=== PATIENT | male | born 1945 | race Caucasian/White ===

== ENCOUNTER 2017-06-16 22:58 | Inpatient (IN) | payer BC, OTHER ==
--- NOTE | 2017-06-16 23:12 | PDOC ---
History of Present Illness - General Chief Complaint: Pain, Acute Stated Complaint: BROKEN FEMUR Time Seen by Provider: 06/16/17 23:12 - History of Present Illness Initial Comments: 06/17/17 04:07 Patient is a 72-year-old male with past medical history of hemorrhagic CVA in 2013, severe aphasia, nonambulatory, who presents emergency department today by ambulance from [facility] to rule out a hip fracture. Patient fell from his wheelchair on 06/12/2016. Hip x-rays were performed at the [facility] which showed a possible new hip fracture. He was transferred to our emergency department for CT scan. Patient is a phasic and cannot communicate. The rest of the history of present illness was obtained from his . She states that approximately 1 month ago he had another fall which resulted in a right hip fracture as well. He was evaluated at [facility] to which they decided not to perform surgery as he is nonambulatory. The x-ray results from [facility] point to a new hip fracture. Patient occasionally shouts out in pain. Past History - Travel Traveled outside of the country in the last 30 days: No Close contact w/someone who was outside of country & ill: No - Past Medical History Allergies/Adverse Reactions: Allergies Allergy/AdvReac Type Severity Reaction Status Date / Time No Known Allergies Allergy Verified 06/17/17 00:30 Home Medications: Ambulatory Orders Finasteride [Proscar] 5 mg PO DAILY 05/03/15 Fluoxetine HCl [Prozac -] 20 mg PO DAILY 05/03/15 Metoprolol Tartrate [Lopressor] 50 mg PO DAILY 05/03/15 Ranitidine [Zantac -] 150 mg PO DAILY 05/03/15 Trazodone HCl [Desyrel -] 150 mg PO HS 05/03/15 Acetaminophen [Tylenol .Regular Strength -] 650 mg PO Q6H PRN #0 tablet Clindamycin [Cleocin -] 300 mg PO Q6HPO #28 capsule 05/06/15 Naproxen 250 mg PO BID PRN #20 tablet 05/06/15 CVA: Yes (2013) - Suicide/Smoking/Psychosocial Hx Smoking History: Never smoked Have you smoked in the past 12 months: No Information on smoking cessation initiated: No Hx Alcohol Use: No Drug/Substance Use Hx: No Substance Use Type: None Review of Systems - Review of Systems Able to Perform ROS?: No (Aphasia) Comments:: 06/17/17 04:15 Unable to obtain a review of systems due to patient's aphasia. Patient does have right hip tenderness. Is the patient limited Wallisian proficient: No *Physical Exam - Vital Signs Last Vital Signs Temp Pulse Resp BP Pulse Ox 98.2 F 76 14 104/57 95 06/16/17 23:05 06/16/17 23:05 06/16/17 23:05 06/16/17 23:05 06/16/17 23:05 - Physical Exam Comments: 06/17/17 04:15 GENERAL: Well developed, well nourished. Awake and alert. No acute distress. HEENT: Normocephalic, atraumatic. PERRLA, EOMI. No conjunctival pallor. Sclera are non- icteric. Moist mucous membranes. Oropharynx is clear. NECK: Supple. Full ROM. No JVD. Carotid pulses 2+ and symmetric, without bruits. No thyromegaly. No lymphadenopathy. CARDIOVASCULAR: Regular rate and rhythm. No murmurs, rubs, or gallops. Distal pulses are 2+ and symmetric. PULMONARY: No evidence of respiratory distress. Lungs clear to auscultation bilaterally. No wheezing, rales or rhonchi. ABDOMINAL: Soft. Non-tender. Non-distended. No rebound or guarding. No organomegaly. Normoactive bowel sounds. MUSCULOSKELETAL TTP of R pelvis/femur. Normal range of motion at all other joints. No CVA tenderness. EXTREMITIES: No cyanosis. No clubbing. No edema. No calf tenderness. SKIN: Warm and dry. Normal capillary refill. No rashes. No jaundice. NEUROLOGICAL: Alert, awake, aphasic. Able to move all extremities. PSYCHIATRIC: Cooperative. Good eye contact. Appropriate mood and affect. ED Treatment Course - LABORATORY CBC & Chemistry Diagram: 06/17/17 01:53 06/17/17 01:53 Medical Decision Making - Medical Decision Making 06/17/17 04:21 Patient is a 72-year-old male with past medical history of hemorrhagic CVA in 2013, severe aphasia, nonambulatory, presenting to the emergency department today with a right acute hip fracture. Based on x-rays from the [facility] , a right pelvis lower extremity CT was obtained to determine the extent of the hip fracture. There appears to be a new acute subcapital hip fracture. Patient and patient's family were requesting transfer to [facility] for further treatment however transfer was denied due to the fact services could be provided here. Patient and family understood and will accept admission to our facility at this time. Basic labs were drawn with no obvious abnormalities. Patient was medicated for pain. We will contact franco at this time for admission to the hospital. We'll consult with Dr. David or Davion. 06/17/17 05:17 Spoke with Franco. They are asking that ortho look at the case prior to admission given that the last hip fx was not operated on. Paging Dr. David at this time. 06/17/17 05:[address] David; surgery is not emergent at this time. Given his first fracture was not operated on, would most likely continue same course of care. However if the family requests surgery, would operate. Spoke with pt. who would like time to evaluate the situation and risks and benefits. Will place the patient in observation for pain management at this time. Case discussed with Dr. Galvan. *DC/Admit/Observation/Transfer Diagnosis at time of Disposition: Closed right hip fracture Qualifiers: Encounter type: initial encounter Qualified Code(s): S72.001A - Fracture of unspecified part of neck of right femur, initial encounter for closed fracture - Discharge Dispostion Condition at time of disposition: Stable Admit: Yes - Referrals Referrals: Lamberto Dobson MD [Primary Care Provider] - - Patient Instructions - Post Discharge Activity
[2017-06-16 23:13] VITALS: BMI 20.2
[2017-06-16] MEDS ORDERED: ACETAMINOPHEN 1000 MG/100 ML VIAL (NON FORMULARY) IVPB ONE (23:21)
[2017-06-17] MEDS ORDERED: HYDROmorphone HCL CARPU-JECT 1 MG/1 ML DISP.SYRIN IVPUSH ONE ×2 (00:37→04:01)
[2017-06-17] MEDS ORDERED: HYDROmorphone HCL CARPU-JECT 2 MG/1 ML DISP.SYRIN ONE ×2 (00:40→10:49)
[2017-06-17] MEDS ORDERED: ACETAMINOPHEN INJECTION 100 ML IVPB ONE (00:43)
--- NOTE | 2017-06-17 01:36 | PDOC ---
*Physical Exam - Vital Signs Last Vital Signs Temp Pulse Resp BP Pulse Ox 98.2 F 76 14 104/57 95 06/16/17 23:05 06/16/17 23:05 06/16/17 23:05 06/16/17 23:05 06/16/17 23:05 ED Treatment Course - Medications Given in the ED: ED Medications Discontinued Medications Generic Name Dose Route Start Last Admin Trade Name Fina PRN Reason Stop Dose Admin Acetaminophen 1,000 mg 06/16/17 23:21 06/17/17 01:05 Ofirmev Injection - IVPB 06/16/17 23:22 1,000 mg ONCE ONE Administration Hydromorphone HCl 0.5 mg 06/17/17 00:37 06/17/17 01:05 Dilaudid Injection - IVPUSH 06/17/17 00:38 0.5 mg ONCE ONE Administration Medical Decision Making - Medical Decision Making 06/17/17 01:32 Patient seen and evaluated with the nurse practitioner. I agree with the overall evaluation, assessment, and management with the following summary of visit: 72-year-old male from [facility], history of stroke with right-sided hemiplegia and nonambulatory at baseline, recent right hairline fracture treated nonoperatively now status post fall earlier this week sent to ED with right hip fracture seen on x-ray. Positive pain, baseline immobility of right leg. Vitals as noted. Exam as noted with right lower extremity shortened and externally rotated 72-year-old male with right hip fracture, sent for further imaging. Labs, pain control CT of the hip at bedside requesting transfer to [place], where pt's primary physician and previous ortho team are located. Will proceed with workup then attempt to contact PCP to accept for transfer for continuity of care. *DC/Admit/Observation/Transfer Diagnosis at time of Disposition: Closed right hip fracture Qualifiers: Encounter type: initial encounter Qualified Code(s): S72.001A - Fracture of unspecified part of neck of right femur, initial encounter for closed fracture - Referrals Referrals: Lamberto Dobson MD [Primary Care Provider] - - Patient Instructions - Post Discharge Activity
[2017-06-17 02:11] LABS: BASO % 0.5 % (0-2.0); EOS % 0.9 % (0-4.5); HEMATOCRIT 33.5 % (35.4-49); HEMOGLOBIN 11.1 GM/dL (11.7-16.9); LYMPH % 32.7 % (8-40); MCHC 33.1 g/dl (32.0-35.9); MEAN CELL VOLUME 87.8 fl (80-96); MEAN PLT VOLUME 9.9 fl (7.5-11.1); MONO % 9.4 % (3.8-10.2); NEUT % 56.5 % (42.8-82.8); PLATELET COUNT 203 K/MM3 (134-434); RBC 3.81 M/mm3 (4.00-5.60); RDW 15.5 % (11.9-15.9); WHITE BLOOD COUNT 4.2 K/mm3 (4.0-10.0)
[2017-06-17 02:31] LABS: ALBUMIN 2.9 g/dl (3.4-5.0); ALK PHOS 125 U/L (45-117); ANION GAP 10 (8-16); BILIRUBIN,TOTAL 0.6 mg/dL (0.2-1.0); BLOOD UREA NITROGEN 15 mg/dL (7-18); CALCIUM 8.6 mg/dL (8.5-10.1); CHLORIDE 107 mmol/L (98-107); CO2 26 mmol/L (21-32); CREATININE 0.8 mg/dL (0.7-1.3); GLUCOSE,RANDOM 90 mg/dL (74-106); POTASSIUM 4.1 mmol/L (3.5-5.1); SGOT/AST 26 U/L (15-37); SGPT/ALT 18 U/L (12-78); SODIUM 143 mmol/L (136-145); TOT PROT 6.7 g/dl (6.4-8.2)
[2017-06-17 04:34] LABS: INR 1.31 (0.82-1.09); PROTHROMBIN TIME (PATIENT) 14.8 SEC (9.98-11.88)
[2017-06-17] MEDS ORDERED: SODIUM CHLORIDE 1,000 ML IV SCH (06:00)
--- NOTE | 2017-06-17 06:05 | HP ---
CC: s/p fall PCP: Dr. Dobson HPI: Briefly, 72 yo detention resident h/o aphasia s/p hemorrhagic CVA and wheelchair bound BIBEMS from [facility] after a mechanical fall on 06/12/2017. X-ray performed at that time showed possible new R hip fracture. He's therefore transferred to the ED for CT scan for confirmation 5 days later. Patient is minimally verbal at baseline, limited information was obtained from chart and ED staff. Patient's would like the patient be transferred to [facility] for further care but her request was denied by [facility]. She's uncertain whether she wants the patient to proceed with hip surgery and would like him be admitted to [facility] pending final decision. Orthopedic surgery was made aware and is now waiting on 's decision on surgery. PMH: Gout, R hip fracture, cellulitis of L foot PSH: None Social History: No tobacco, alcohol or drug use Allergy: NKDA Home Meds: Finasteride [Proscar] 5 mg PO DAILY 05/03/15 Fluoxetine HCl [Prozac -] 20 mg PO DAILY 05/03/15 Metoprolol Tartrate [Lopressor] 50 mg PO DAILY 05/03/15 Ranitidine [Zantac -] 150 mg PO DAILY 05/03/15 Trazodone HCl [Desyrel -] 150 mg PO HS 05/03/15 Acetaminophen [Tylenol .Regular Strength -] 650 mg PO Q6H PRN #0 tablet Clindamycin [Cleocin -] 300 mg PO Q6HPO #28 capsule 05/06/15 Naproxen 250 mg PO BID PRN #20 tablet 05/06/15 ROS: Unable to obtain due to mental status Physical Examination Last Vital Signs Temp Pulse Resp BP Pulse Ox 98.2 F 72 18 143/74 100 06/16/17 12:12 06/16/17 15:48 06/16/17 15:48 06/16/17 15:48 06/16/17 15:48 General: lying in bed contracted in no obvious discomfort or distress, awake, alert, but not aware, minimally verbal but does not follow command or answer question. HEENT: R facial droop Cardiovascular: RRR, S1 and S2 normal, 2/5 systolic murmur, no m/g/r. Lungs: CTAB Abdomen: refused exam Extremeties: became agitated during exam, unable to perform CBCD WBC 4.2 K/mm3 (4.0-10.0) 06/17/17 01:53 RBC 3.81 M/mm3 (4.00-5.60) L 06/17/17 01:53 Hgb 11.1 GM/dL (11.7-16.9) L 06/17/17 01:53 Hct 33.5 % (35.4-49) L 06/17/17 01:53 MCV 87.8 fl (80-96) 06/17/17 01:53 MCHC 33.1 g/dl (32.0-35.9) 06/17/17 01:53 RDW 15.5 % (11.9-15.9) 06/17/17 01:53 Plt Count 203 K/MM3 (134-434) 06/17/17 01:53 MPV 9.9 fl (7.5-11.1) 06/17/17 01:53 CMP Sodium 143 mmol/L (136-145) 06/17/17 01:53 Potassium 4.1 mmol/L (3.5-5.1) 06/17/17 01:53 Chloride 107 mmol/L (98-107) 06/17/17 01:53 Carbon Dioxide 26 mmol/L (21-32) 06/17/17 01:53 Anion Gap 10 (8-16) 06/17/17 01:53 BUN 15 mg/dL (7-18) 06/17/17 01:53 Creatinine 0.8 mg/dL (0.7-1.3) 06/17/17 01:53 Creat Clearance w eGFR > 60 (>60) 06/17/17 01:53 Calcium 8.6 mg/dL (8.5-10.1) 06/17/17 01:53 Total Bilirubin 0.6 mg/dL (0.2-1.0) 06/17/17 01:53 AST 26 U/L (15-37) 06/17/17 01:53 ALT 18 U/L (12-78) 06/17/17 01:53 Alkaline Phosphatase 125 U/L (45-117) H 06/17/17 01:53 Total Protein 6.7 g/dl (6.4-8.2) 06/17/17 01:53 Albumin 2.9 g/dl (3.4-5.0) L 06/17/17 01:[address] lower extremity: pending official report, R subcapital fracture per imaging relocation services specialist. A/P: 72 yo detention resident h/o aphasia s/p hemorrhagic CVA and wheelchair bound admitted to obs for pain control for R hip fracture. R subcapital hip fracture, new - Tylenol 300mg standing Q6H - Dilaudid 0.5mg Q4H PRN - Pending 's decision on medical vs. surgical management - Dr. David on the case HTN - Cont. metoprolol FEN - IVF 42cc/hr - Normal lytes - Regular diet Prophylaxis - DVT: SCDs Dispo - Admit for IV pain control, pending 's decision on surgery Bipin Fairchild Medicine PGY2 Pager: [phone] Visit type - Emergency Visit Emergency Visit: Yes Care time: The patient presented to the Emergency Department on the above date and was hospitalized for further evaluation of their emergent condition. - New Patient This patient is new to me today: Yes Date on this admission: 06/17/17 - Critical Care Critical Care patient: No
[2017-06-17] MEDS ORDERED: NAPROXEN 250 MG TABLET (FP) PO PRN (06:20)
[2017-06-17] MEDS: ACETAMINOPHEN 325 MG TABLET (FP) PO SCH ×3 (06:31→20:18)
--- NOTE | 2017-06-17 06:51 | PN ---
Teaching Attending Note Name of Resident: Bipin Fairchild ATTENDING PHYSICIAN STATEMENT I saw and evaluated the patient. Chart, data, imaging reviewed. I reviewed the resident's note and discussed the case with the resident. I agree with the resident's findings and plan as documented. SUBJECTIVE: 72-year-old male from long term, with history of stroke with right-sided hemiplegia and nonambulatory at baseline, recent right hairline fracture treated nonoperatively. Now status post fall about 5 days ago. Sent to hospital because of new/worsening fracture of right hip seen on xray at long term. Evidence of ongoing pain. OBJECTIVE: Last Vital Signs Temp Pulse Resp BP Pulse Ox 98.6 F 70 18 102/76 100 06/17/17 02:35 06/17/17 02:35 06/17/17 02:35 06/17/17 02:35 06/17/17 02:35 General- nonverbal, nontoxic appearing heent -at, nc, no sinus tenderness neck -supple cv-s1+s2+ rrr chest - cta b/l abdomen - patient refused exam ext- unable to examine properly due to lack of cooperation CT of right lower extremity : pending official report, R subcapital fracture per imaging rn liaison. Abnormal Lab Results 06/17/17 06/17/17 06/17/17 01:53 01:53 04:09 RBC 3.81 L Hgb 11.1 L Hct 33.5 L PT with INR 14.80 H INR 1.31 H Alkaline Phosphatase 125 H Albumin 2.9 L ASSESSMENT AND PLAN: #72yo male s/p fall with right hip fracture. Patient may be candidate for surgical intervention if family decides upon it. -observation med/surg -pain control with PO tylenol -orthopedics evaluation -f/u final CT of lower extremity report -continue home meds for chronic medical problems #DVT ppx -heparin sc
[2017-06-17] MEDS: FLUoxetine HCL 20 MG CAPSULE (FP) PO SCH (09:52)
[2017-06-17] MEDS: RANITIDINE HCL 150 MG TABLET (FP) PO SCH (09:52)
[2017-06-17] MEDS ORDERED: METOPROLOL TARTRATE 50 MG TABLET (FP) PO SCH (10:00)
[2017-06-17] MEDS ORDERED: FINASTERIDE 5 MG TABLET (FP) PO SCH (10:00)
[2017-06-17] MEDS: HYDROmorphone HCL CARPU-JECT 1 MG/1 ML DISP.SYRIN IVPUSH PRN (10:55)
[2017-06-17] MEDS ORDERED: MAGNESIUM HYDROX 2400MG/30ML ORAL SUSPENSION 30 ML CUP PO PRN (14:49)
--- NOTE | 2017-06-17 15:02 | PN ---
Progress Note (short form) - Note Progress Note: Subjective: no fever or hcills , has pain in R hip even with minimal movement and touch Objective: Vital Signs: Last Vital Signs Temp Pulse Resp BP Pulse Ox 98.8 F 79 17 140/81 98 06/17/17 06:52 06/17/17 11:10 06/17/17 11:10 06/17/17 11:10 06/17/17 11:10 Laboratory Results - last 24 hr 06/17/17 06/17/17 06/17/17 01:53 01:53 01:53 WBC 4.2 RBC 3.81 L Hgb 11.1 L Hct 33.5 L MCV 87.8 MCH 29.0 MCHC 33.1 RDW 15.5 Plt Count 203 MPV 9.9 Neutrophils % 56.5 Lymphocytes % 32.7 Monocytes % 9.4 Eosinophils % 0.9 Basophils % 0.5 PT with INR INR PTT (Actin FS) Sodium 143 Potassium 4.1 Chloride 107 Carbon Dioxide 26 Anion Gap 10 BUN 15 Creatinine 0.8 Creat Clearance w eGFR > 60 Random Glucose 90 Calcium 8.6 Total Bilirubin 0.6 AST 26 ALT 18 Alkaline Phosphatase 125 H Total Protein 6.7 Albumin 2.9 L Blood Type A POSITIVE Antibody Screen Negative 06/17/17 06/17/17 03:25 04:09 WBC RBC Hgb Hct MCV MCH MCHC RDW Plt Count MPV Neutrophils % Lymphocytes % Monocytes % Eosinophils % Basophils % PT with INR Cancelled 14.80 H INR Cancelled 1.31 H PTT (Actin FS) Cancelled Sodium Potassium Chloride Carbon Dioxide Anion Gap BUN Creatinine Creat Clearance w eGFR Random Glucose Calcium Total Bilirubin AST ALT Alkaline Phosphatase Total Protein Albumin Blood Type Antibody Screen Physical Exam: NAD, in position on hi s left side, screams with even moving the sheets over his hip limited exam due to his position CV: RRR, Lungs: CTAB Abd: not able to examine R lateral hip with no erythema , unable to evaluate movement , or warmth. did not allow foot exam, L DP 2+ . no edema on legs. unable to perform neuro exam. Assessment/Plan: 72 y/o unfortunate man with h/o hemorrhagic stroke, R sided weakness, HLP, GERD , aphasia, and recent R hip hair line Fx , managed conservatively who presented after a fall form a wheel chair in [place] . 1- Displaced R hip Fx: with significant pain - pain meds ( cont dilaudid and add percocet) . dc naproxen due to possible bleed on CT scan - ortho eval. - rayna-op risk stratification: this is a non emergent intermediate risk procedure. this patient has no current sx or signs of ACS, heart failure or arrhythmias. will review his EKG. No murmurs are heard on heart exam. he has a h /o stroke and HTN. His functional status is poor and an equivalent of < 1 METs. given all these factors, this patient is considered at intermediate-high risk of rayna-op cardiac complications for this intermediate risk surgery. - will optimize his medical regimen 2- HTN: increase lopressor to his home dose. 50 BID 3- Depression : cont prozac and decrease trazodone to his home dose 50 4- poor po intake , gentle hydration speech eval. usually takes chopped diet 6- DVT PX , SCDs. hold heparin due the possible bleeding around the Fx on CT. after sx will appreciate ortho advise Visit type - Emergency Visit Emergency Visit: Yes ED Registration Date: 06/17/17 Care time: The patient presented to the Emergency Department on the above date and was hospitalized for further evaluation of their emergent condition. - New Patient This patient is new to me today: No - Critical Care Critical Care patient: No
[2017-06-17] MEDS ORDERED: ACETAMINOPHEN 325 MG TABLET (FP) PO PRN (15:07)
[2017-06-17] MEDS: SODIUM CHLORIDE 1,000 ML IV SCH (15:30)
[2017-06-17] MEDS ORDERED: ACETAMINOPHEN 325 MG TABLET (FP) ONE (20:10)
[2017-06-17] MEDS ORDERED: traZODone HCL 50 MG TABLET (FP) PO SCH (22:00)
[2017-06-17] MEDS: traZODone HCL 50 MG TABLET (FP) PO SCH (22:20)
[2017-06-17] MEDS: METOPROLOL TARTRATE 50 MG TABLET (FP) PO SCH (22:20)
[2017-06-17] MEDS ORDERED: METOPROLOL TARTRATE 50 MG TABLET (FP) ONE (22:21)
[2017-06-18] MEDS: oxyCODONE HCL 5 MG TABLET PO PRN ×3 (01:38→16:57)
[2017-06-18] MEDS: ACETAMINOPHEN 325 MG TABLET (FP) PO SCH ×2 (01:38→12:39)
--- NOTE | 2017-06-18 06:10 | PN ---
Physical Exam: SUBJECTIVE: Patient seen and examined at bedside. AAOx0 , refused to be examined (needed to be hold by nurses), demented. No acute events over night. OBJECTIVE: Vital Signs Period Temp Pulse Resp BP Sys/Fu Pulse Ox Last 24 Hr 97.8 F-98.9 F 66-79 15-20 110-149/55-88 92-98 GENERAL: awake , aphasic ,in mild distress. screams with minimal interval HEAD: Normal with no signs of trauma. EYES: sclera anicteric, conjunctiva clear. ENT: dry mucous membranes. NECK: supple. LUNGS: Breath sounds equal, clear to auscultation bilaterally, no wheezes, no crackles, no accessory muscle use. HEART: Regular rate and rhythm, S1, S2 without murmur, rub or gallop. ABDOMEN: Soft, nontender, nondistended, normoactive bowel sounds, no guarding, no rebound, EXTREMITIES: 2+ pulses, warm, well-perfused, no edema. right leg contracted, with 1x0.5 cm stage 2 malluolus ulcer. NEUROLOGICAL:not able to performed. aphasic , gait not observed. PSYCH: Normal mood, normal affect. SKIN: Warm, dry, erythematous, rash on the scrotum , erythema on the lower back. Active Medications Generic Name Dose Route Start Last Admin Trade Name Freq PRN Reason Stop Dose Admin Acetaminophen 325 mg 06/17/17 06:30 06/18/17 01:38 Tylenol - PO 325 mg Q6H SNEHA Administration Acetaminophen 325 mg 06/17/17 15:07 Tylenol - PO 06/20/17 15:06 Q4H PRN 6-10 Fluoxetine HCl 20 mg 06/17/17 10:00 06/17/17 09:52 Prozac - PO 20 mg DAILY SNEHA Administration Hydromorphone HCl 0.5 mg 06/17/17 06:00 06/17/17 10:55 Dilaudid Injection - IVPUSH 0.5 mg Q4H PRN Administration PAIN Sodium Chloride 1,000 mls @ 50 mls/hr 06/17/17 15:15 06/17/17 15:30 Normal Saline - IV 50 mls/hr ASDIR SNEHA Administration Magnesium Hydroxide 15 ml 06/17/17 14:49 Milk Of Magnesia - PO DAILY PRN CONSTIPATION Metoprolol Tartrate 50 mg 06/17/17 22:00 06/17/17 22:20 Lopressor - PO 50 mg BID [facility] Administration Oxycodone HCl 5 mg 06/17/17 15:07 06/18/17 01:38 Roxicodone - PO 5 mg Q4H PRN Administration 6-10 Polyethylene Glycol 17 gm 06/18/17 10:00 Miralax (For Daily Use) - PO DAILY [facility] Ranitidine HCl 150 mg 06/17/17 10:00 06/17/17 09:52 Zantac - PO 150 mg DAILY [facility] Administration Trazodone HCl 50 mg 06/17/17 22:00 06/17/17 22:20 Desyrel - PO 50 mg HS [facility] Administration CBC, BMP 06/18/17 07:00 06/17/17 01:53 Active Medications Acetaminophen (Tylenol -) 325 mg PO Q6H [facility] Last Admin: 06/18/17 12:39 Dose: 325 mg Acetaminophen (Tylenol -) 325 mg PO Q4H PRN PRN Reason: 6-10 Stop: 06/20/17 15:06 Enoxaparin Sodium (Lovenox -) 40 mg SQ DAILY [facility] Fluoxetine HCl (Prozac -) 20 mg PO DAILY [facility] Last Admin: 06/18/17 10:04 Dose: 20 mg Sodium Chloride (Normal Saline -) 1,000 mls @ 50 mls/hr IV ASDIR [facility] Last Admin: 06/18/17 17:02 Dose: 50 mls/hr Lidocaine (Lidoderm Patch -) 1 patch TP DAILY [facility] Magnesium Hydroxide (Milk Of Magnesia -) 15 ml PO DAILY PRN PRN Reason: CONSTIPATION Metoprolol Tartrate (Lopressor -) 50 mg PO BID [facility] Last Admin: 06/18/17 10:03 Dose: 50 mg Miscellaneous (Lidoderm Patch Removal) 1 each MC DAILY@2200 [facility] Nystatin (Mycostatin Cream -) 1 applic TP BID [facility] Last Admin: 06/18/17 10:05 Dose: 1 applic Oxycodone HCl (Roxicodone -) 10 mg PO Q4H PRN PRN Reason: 6-10 Polyethylene Glycol (Miralax (For Daily Use) -) 17 gm PO DAILY [facility] Last Admin: 06/18/17 10:04 Dose: 17 gm Ranitidine HCl (Zantac -) 150 mg PO DAILY [facility] Last Admin: 06/18/17 10:03 Dose: 150 mg Trazodone HCl (Desyrel -) 50 mg PO HS [facility] Last Admin: 06/17/17 22:20 Dose: 50 mg ASSESSMENT/PLAN: 72 y/o unfortunate man with h/o hemorrhagic stroke, R sided weakness, HLP, GERD , aphasia, and recent R hip hair line Fx , managed conservatively who presented after a fall form a wheel chair in [place] . #Displaced R subcapital hip fracture, new * continue IV tylenol 325 mg q 4hr * oxycodone 10 mg po q4hr , Lidocaine patch , * Dr. David on the case * rayna-op risk stratification: this is a non emergent intermediate risk procedure. this patient has no current sx or signs of ACS, heart failure or arrhythmias. * will review his EKG. No murmurs are heard on heart exam. he has a h/o stroke and HTN. His functional status is poor and an equivalent of < 1 METs. * given all these factors, this patient is considered at intermediate-high risk of rayna-op cardiac complications for this intermediate risk surgery. * Surgery cancelled , per ortho, will transfer to rehab # Scrotum tinea (tinea cruris ) * started on Nystatin cream TP BID # HTN: * continue home dose Lopressor 50 BID # constipation , * On Miralax 17 mg po daily and milk of magnesia 15 mg po daily #Depression : * cont prozac 20 mg po daily and trazodone 50 mg po daily (home dose confrmed ) # FEN * F:gentle hydration, NS 50 cc/hr * E: WNL , monitor * N: low sodium diet * #speech eval. * usually tae chopped diet # PX * DVT , SCDs.lovenox 40 mg SQ daily * GI: on Ranitidine 150 mg po daily * # Dispo: * Admit to med-surg * transferred to long-term as surgery cancelled, per orthopedics. Visit type - Emergency Visit Emergency Visit: Yes ED Registration Date: 06/17/17 Care time: The patient presented to the Emergency Department on the above date and was hospitalized for further evaluation of their emergent condition. - New Patient This patient is new to me today: Yes Date on this admission: 06/18/17 - Critical Care Critical Care patient: No - Discharge Referral Referred to [facility] No
[2017-06-18 08:31] LABS: BASO % 0.4 % (0-2.0); EOS % 0.6 % (0-4.5); HEMATOCRIT 33.4 % (35.4-49); HEMOGLOBIN 10.9 GM/dL (11.7-16.9); LYMPH % 21.5 % (8-40); MCH 28.7 pg (25.7-33.7); MCHC 32.5 g/dl (32.0-35.9); MEAN CELL VOLUME 88.3 fl (80-96); MEAN PLT VOLUME 9.1 fl (7.5-11.1); MONO % 7.6 % (3.8-10.2); NEUT % 69.9 % (42.8-82.8); PLATELET COUNT 196 K/MM3 (134-434); RBC 3.78 M/mm3 (4.00-5.60); RDW 15.5 % (11.9-15.9); WHITE BLOOD COUNT 6.4 K/mm3 (4.0-10.0)
[2017-06-18] MEDS ORDERED: PT OWN MED DRAWER 7, Y5N ONE (09:39)
[2017-06-18] MEDS: HYDROmorphone HCL CARPU-JECT 1 MG/1 ML DISP.SYRIN IVPUSH PRN (09:55)
--- NOTE | 2017-06-18 10:00 | CON.ORTH ---
Consult Reason for Consultation:: right hip fx - Alcohol/Substance Use Hx Alcohol Use: No - Smoking History Smoking history: Never smoked Have you smoked in the past 12 months: No Home Medications - Allergies Allergies/Adverse Reactions: Allergies Allergy/AdvReac Type Severity Reaction Status Date / Time No Known Allergies Allergy Verified 06/17/17 00:30 - Home Medications Home Medications: Ambulatory Orders Fluoxetine HCl [Prozac -] 20 mg PO DAILY 05/03/15 Metoprolol Tartrate [Lopressor] 50 mg PO BID 05/03/15 Trazodone HCl [Desyrel -] 50 mg PO HS 05/03/15 Acetaminophen [Tylenol .Regular Strength -] 650 mg PO Q6H PRN #0 tablet Clindamycin [Cleocin -] 300 mg PO Q6HPO #28 capsule 05/06/15 Aspirin 81 mg PO DAILY 06/17/17 Docusate Sodium [Colace] 300 mg PO HS 06/17/17 Folic Acid 1 mg PO DAILY 06/17/17 Magnesium Hydroxide [Milk of Magnesia] 15 ml PO DAILY PRN 06/17/17 Oxycodone HCl/Acetaminophen [Oxycodone-Acetaminophen 5-325] 2 each PO TID Oxycodone HCl/Acetaminophen [Oxycodone-Acetaminophen 5-325] 2 tab PO Q6H PRN Polyethylene Glycol 3350 [Miralax (For Daily Use) -] 17 gm PO DAILY 06/17/17 Simvastatin [Zocor -] 20 mg PO HS 06/17/17 Tizanidine HCl [Zanaflex] 0.5 tab PO BID 06/17/17 Physical Exam for Ortho Vital Signs: Vital Signs Temperature 98.9 F 06/18/17 05:36 Pulse Rate 66 06/18/17 05:36 Respiratory Rate 20 06/18/17 05:36 Blood Pressure 140/80 06/18/17 05:36 O2 Sat by Pulse Oximetry (%) 95 06/18/17 01:00 Labs: CBC, BMP 06/18/17 07:00 06/17/17 01:53 INR, PTT INR 1.31 (0.82-1.09) H 06/17/17 04:09 - Lower Extremity Hip: Yes: Right, Decreased ROM, Pain, Other (RLE with significant contracture, + ttp, + pain with motion) Imaging - Results Cat Scan: Report Reviewed, Image Reviewed Assessment/Plan 72-year-old male with past medical history of hemorrhagic CVA in 2013, severe aphasia, nonambulatory, who presents emergency department today by ambulance from [facility] to rule out a hip fracture. Patient fell from his wheelchair on 06/12/2016. Hip x-rays were performed at the [facility] which showed a possible new hip fracture. He was transferred to our emergency department for CT scan. Patient is a phasic and cannot communicate. The rest of the history of present illness was obtained from his . She states that approximately 1 month ago he had another fall which resulted in a right hip fracture as well. He was evaluated at [facility] to which they decided not to perform surgery as he is nonambulatory. The x-ray results from [facility] point to a new hip fracture a/p right femoral neck fx- non-union Dr. David to discuss with family regarding conservative vs surgical approach d/w Dr. David
[2017-06-18] MEDS: METOPROLOL TARTRATE 50 MG TABLET (FP) PO SCH ×2 (10:03→23:38)
[2017-06-18] MEDS: RANITIDINE HCL 150 MG TABLET (FP) PO SCH (10:03)
[2017-06-18] MEDS: POLYETHYLENE GLYCOL 3350 119 GM BTL PO SCH (10:04)
[2017-06-18] MEDS: FLUoxetine HCL 20 MG CAPSULE (FP) PO SCH (10:04)
[2017-06-18] MEDS: NYSTATIN 100,000 UNIT/GM TOPICAL CREAM 15 GM TUBE TP SCH (10:05)
--- NOTE | 2017-06-18 13:03 | EKG ---
Test Reason : Blood Pressure : / mmHG Vent. Rate : 068 BPM Atrial Rate : 068 BPM P-R Int : 148 ms QRS Dur : 134 ms QT Int : 412 ms P-R-T Axes : 036 -38 048 degrees QTc Int : 438 ms NORMAL SINUS RHYTHM LEFT AXIS DEVIATION RIGHT BUNDLE BRANCH BLOCK ABNORMAL ECG NO PREVIOUS ECGS AVAILABLE Confirmed by SAMANTHA EDMONDSON, RAH ([id number]) on 06/18/2017 1:03:37 PM Referred By: Confirmed By:RAH SINGH MD
[2017-06-18] MEDS: SODIUM CHLORIDE 1,000 ML IV SCH ×2 (17:02→23:44)
[2017-06-18] MEDS ORDERED: oxyCODONE HCL 5 MG TABLET PO PRN (17:48)
--- NOTE | 2017-06-18 17:51 | PN ---
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 TRANSFER TO [place]. REFER TO TERTIARY FACILITY FOR POSSIBLE SURGERY
--- NOTE | 2017-06-18 17:52 | PN ---
Teaching Attending Note Name of Resident: Albaro Merritt ATTENDING PHYSICIAN STATEMENT I saw and evaluated the patient. I reviewed the resident's note and discussed the case with the resident. I agree with the resident's findings and plan as documented. SUBJECTIVE: pain in R hip is slightly better with dilaudid and oxycodone OBJECTIVE: NAD, in position, more awake today and cooperative limited exam due to his position CV: RRR, no MRG Lungs: CTAB Abd: not able to examine lying on R side , can't evaluate hip, no edema or erythema on legs . Assessment/Plan: 72 y/o unfortunate man with h/o hemorrhagic stroke, R sided weakness, HLP, GERD , aphasia, and recent R hip hair line Fx , managed conservatively who presented after a fall form a wheel chair in [place] . 1- Displaced R hip Fx: with significant pain -evaluated by Surgical team. no surgical procedure . - will icnrease oxy to 10 mg q 4h - add lidocain patch - dc dilaudid - start DVT PX 2- HTN:lopressor 50 BID 3- Depression : cont prozac and trazodone 4- poor po intake , gentle hydration speech eval pending . usually takes chopped diet 6- DVT PX , SCDs.add lovenox possible dc back to [facility] tomorrow
[2017-06-18] MEDS ORDERED: ENOXAPARIN NA (PORCINE) 30 MG/0.3 ML DISP.SYRIN SQ ONE ×2 (18:00→22:45)
--- NOTE | 2017-06-18 18:44 | CONS ---
ORTHOPEDIC CONSULTATION DATE OF CONSULTATION: 06/18/2017 Patient is a 72-year-old male, nonambulator, status post hemorrhagic stroke many years ago, has been living at home, a nonambulator and seen in a wheelchair. He fell out of his wheelchair about 6-8 weeks ago and was seen at [facility]. At that time, by report, patient had a nondisplaced fracture of his right femoral neck that they elected to treat the patient nonoperatively. The patient has not been doing well and recently fell out of bed again, complaining of increased pain and precipitated transfer from [facility] to [facility] for evaluation. Patient was admitted with a femoral neck fracture. PHYSICAL EXAMINATION: Patient has marked contractures of both his hips and his knees. He is sitting in bed with his ankles touching the undersurface of his thigh. I can gently get him to extend his left side to still with some flexion contracture of both locations. On his right side, I can also get him somewhat to extend, but he does have some pain with range of motion of his hip, none at his ankle and his toes. Otherwise, neurovascularly intact. 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 I had a long discussion with the and the patient in great detail. At this point, the marked contractures, I believe, doing a straight forward hemiarthroplasty would be plagued with all sorts of complications, most of which would be a very quick dislocation, which would make matters even worse than where he is now. I believe he does have pain with motion of his hip, but a nonunion of his femoral neck can become less painful over time and to become a fibrous nonunion with minimal pain. I, therefore, would not do surgery on him, would give him analgesics, get him from bed to chair, begin mobilizing the patient the best he can. If he has persistent pain, he can have a hemiarthroplasty, but it would require extensive releases of the flexion contraction of both his knee and his hip, and I would recommend that he have evaluation for that at a tertiary care center. I have given a few names and locations to go in [place] if family wants to entertain that, but at this point, I would not operate. I would have the patient transferred back to the rehabilitation center tomorrow with analgesics and a prescription to be out of bed to chair and mobilize the patient as best as we can. VIVIANA LIU M.D. NICOLE/[id number]
[2017-06-18] MEDS ORDERED: LIDOCAINE PATCH REMOVAL MC SCH (22:00)
[2017-06-18] MEDS: traZODone HCL 50 MG TABLET (FP) PO SCH (23:38)
[2017-06-19] MEDS: ACETAMINOPHEN 325 MG TABLET (FP) PO SCH ×2 (07:55→13:26)
[2017-06-19] MEDS: NYSTATIN 100,000 UNIT/GM TOPICAL CREAM 15 GM TUBE TP SCH ×2 (07:56→09:17)
[2017-06-19] MEDS: LIDOCAINE 5% TOPICAL PATCH TP SCH ×2 (07:56→09:16)
[2017-06-19 08:26] LABS: BASO % 0.3 % (0-2.0); EOS % 1.2 % (0-4.5); HEMATOCRIT 32.6 % (35.4-49); HEMOGLOBIN 10.4 GM/dL (11.7-16.9); LYMPH % 24.9 % (8-40); MCH 28.2 pg (25.7-33.7); MCHC 31.8 g/dl (32.0-35.9); MEAN CELL VOLUME 88.9 fl (80-96); MEAN PLT VOLUME 9.6 fl (7.5-11.1); MONO % 9.4 % (3.8-10.2); NEUT % 64.2 % (42.8-82.8); PLATELET COUNT 180 K/MM3 (134-434); RBC 3.67 M/mm3 (4.00-5.60); RDW 15.7 % (11.9-15.9); WHITE BLOOD COUNT 4.9 K/mm3 (4.0-10.0)
[2017-06-19] MEDS ORDERED: PT OWN MED DRAWER 7, Y5N ONE (09:13)
[2017-06-19] MEDS: RANITIDINE HCL 150 MG TABLET (FP) PO SCH (09:16)
[2017-06-19] MEDS: METOPROLOL TARTRATE 50 MG TABLET (FP) PO SCH (09:16)
[2017-06-19] MEDS: FLUoxetine HCL 20 MG CAPSULE (FP) PO SCH (09:16)
[2017-06-19] MEDS: POLYETHYLENE GLYCOL 3350 119 GM BTL PO SCH (09:17)
[2017-06-19] MEDS ORDERED: ENOXAPARIN NA (PORCINE) 40 MG/0.4 ML DISP.SYRIN SQ SCH (10:00)
--- NOTE | 2017-06-19 10:43 | CONSULT ---
Admitting History and Physical - Primary Care Physician PCP: Edison Padilla - Admission History of Present Illness: 72 yo assisted resident h/o aphasia s/p hemorrhagic CVA and wheelchair bound BIBEMS from [facility] after a mechanical fall on 06/12/2017. R hip fracture. 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 TRANSFER TO [place]. REFER TO TERTIARY FACILITY FOR POSSIBLE SURGERY Selected Entries 06/18/17 06/18/17 06/18/17 01:00 05:36 10:00 Breakfast Lunch Supper Temperature 98.3 F 98.9 F 98.1 F 06/18/17 06/18/17 06/19/17 14:57 20:51 05:57 Breakfast 75% Lunch 75% Supper 75% Temperature 98.2 F 98.9 F 98.8 F 06/19/17 09:00 Breakfast Lunch Supper Temperature 98.1 F Laboratory Tests 06/19/17 06:00 WBC 4.9 Pt was on a chopped diet and thin liquid at [facility]. History Source: Medical Record Limitations to Obtaining History: Other (aphasia, cognitive defecits) - Smoking History Smoking history: Never smoked Have you smoked in the past 12 months: No - Alcohol/Substance Use Hx Alcohol Use: No History - Admission Reason For Visit: CLOSED FRACTURE OF RIGHT HIP - General Mental Status: Awake and Alert, Able to Follow Commands, Anxious (screams periodically. New secondary to pain vs baseline?) Attention: Distractible, Mild Impairment Ability to Follow Directions: Fair Head/Neck Control: Fair - Hearing Hearing: Normal Speech Evaluation - Communication Primary Language: [id number] Communication: Yes: Aphasia Oral Expression Ability: Yes: Moderate Impairment, Severe Impairment - Speech Production Apraxia: Yes Able to Make Needs Known: Yes: Moderately Impaired, Severely Impaired - Speech Characteristics Voice Loudness: Normal Voice Pitch: Yes: Normal Voice Phonatory-based Quality: Yes: Normal Speech Pattern: Impaired Speech Clarity: < 25% Nasal Resonance: Normal Articulation: Yes: Imprecise (sec to apraxia/aphasia.) Rate of Speech: Too Fast - Language/Auditory Comprehension Observation: Yes/No Confusion: Yes, Comprehends Conversational Speech: Yes ( simple?) - Language/Verbal Expression Aphasia: Yes: Impaired Repetition, Apraxia, Sound Errors Able to Respond to Simple Queries: Yes: Severely Impaired Able to Communicate Wants and Needs: Yes: Severely Impaired Functional Communication Status: Yes: Severely Impaired - Swallow Evaluation/Bedside Assessment Current Nutritional Intake: Dysphagia Minced, Thin Liquids Oral Secretions: Yes: WFL Dentition: Yes: Adequate Facial Symmetry at Rest: Symmetrical Lingual Movement: Symmetric Lingual Speed of Movement: Normal Lingual Movement Strgth Against Opposition: Normal Lingual Movement Characteristics: Normal Laryngeal Elevation: WFL Laryngeal Movement: Able to Palpate Rate of Intake: WFL Labial Seal: WFL Chewing: WFL Oral Prep Time: WFL A-P Transit: WFL Pocketing: None Timing of Swallow: WFL Coughing/Throat Clear: Yes (1 instance of cough with thin liquid) Recommendations - Speech Evaluation, Impression/Plan Impression: Aphasia with poor functional expressive language.1 instance of cough with thin liquid. - Dysphagia Impressions/Plan Dysphagia Impressions: Mild Impairment *Silent aspiration: cannot be R/O at bedside - Recommendations Diet Consistency: Dysphagia Minced, 1 - 2 Soft Items Liquids: Thin Liquids, Other (observe for responsive cough.) Supplement: Other (as indicated)
--- NOTE | 2017-06-19 12:09 | PN ---
Progress Note (short form) - Note Progress Note: WE HAVE DECIDED NOT TO OPERATE ON THE PATIENT AND TRANSFER HIM BACK TO THE SENIOR CARE. HE MAY BE OOB TO CHAIR AND SHOULD BE GIVEN ANALGESICS NEEDED.
--- NOTE | 2017-06-19 13:28 | DS ---
Physical Exam: SUBJECTIVE: Patient seen and examined sitting in position, no acute events over night. pain is well controlled with meds. OBJECTIVE: Vital Signs Period Temp Pulse Resp BP Sys/Fu Pulse Ox Last 24 Hr 98.1 F-98.9 F 64-76 20-22 112-152/56-73 95-95 PHYSICAL EXAM GENERAL: awake , aphasic ,in mild distress. screams with minimal interval HEAD: Normal with no signs of trauma. EYES: sclera anicteric, conjunctiva clear. ENT: dry mucous membranes. NECK: supple. LUNGS: Breath sounds equal, clear to auscultation bilaterally, no wheezes, no crackles, no accessory muscle use. HEART: Regular rate and rhythm, S1, S2 without murmur, rub or gallop. ABDOMEN: Soft, nontender, nondistended, normoactive bowel sounds, no guarding, no rebound, EXTREMITIES: 2+ pulses, warm, well-perfused, no edema. right leg contracted, with 1x0.5 cm stage 2 malluolus ulcer. NEUROLOGICAL:not able to performed. aphasic , gait not observed. PSYCH: Normal mood, normal affect. SKIN: Warm, dry, erythematous, rash on the scrotum , erythema on the lower back. LABS Laboratory Results - last 24 hr 06/19/17 06:00 WBC 4.9 RBC 3.67 L Hgb 10.4 L Hct 32.6 L MCV 88.9 MCH 28.2 MCHC 31.8 L RDW 15.7 Plt Count 180 MPV 9.6 Neutrophils % 64.2 Lymphocytes % 24.9 Monocytes % 9.4 Eosinophils % 1.2 D Basophils % 0.3 CBC, BMP 06/19/17 06:00 06/17/17 01:53 HOSPITAL COURSE: Date of Admission:06/18/17 Date of Discharge: 06/19/17 is a 72 y/o male with h/o hemorrhagic stroke, R sided weakness, HLP, GERD, aphasia, and recent R hip hair line Fx , managed conservatively who presented after a fall form a wheel chair in [place] . for Displaced R hip Fx, with significant pain ,evaluated by Surgical team. no surgical procedure .icnrease oxy to 10 mg q 4h, lidocain patch added, dc dilaudid and startedon DVT PX with lovenox 40 mg SQ daily.he will be continue his home meds for pain upon dc and lidocain patch. He is on lopressor 50 BID for HTN,for Depression : cont prozac and trazodone home dose. poor po intake ,was given gentle hydration and speech and swallow evaluated him : Aphasia with poor functional expressive language.instance of cough with thin liquid.he will continue on Dysphagia Minced, 1 - 2 Soft Items, and thin lequid. pt was found to have rash on the scrotum area and nystatin cream BID was given to him and will continue as out patient. pt has constipation and is using miralax and MOM s needed for that , continue using them as out patient. He will be send back to rehab facility and will follow up with orthopedic surgery for [facility] per discussion with the family very high risk for surgery. Minutes to complete discharge: 50 Discharge Summary Reason For Visit: CLOSED FRACTURE OF RIGHT HIP Current Active Problems Closed right hip fracture (Acute) Skin ulcer, stage 2 (Chronic) Condition: Stable - Instructions Diet, Activity, Other Instructions: You were admitted to the hospital for the displace right hip fracture and surgery was cancelled due to high risk complication , you will be transferred to [facility] facility for rehab. Please follow fall precautions Please take your medicine as prescribed. Please make sure you have bowel movement every day and use the laxatives as needed. Please resume all your home meds as before admission Please follow up with your primary care physician within a week. Please follow up with orthopedic surgery in tertiary facility. If you develop fever, chills,nausea, vomiting, or your pain worsen please call 911 or came back to emergency room as soon as possible. Referrals: Klever David MD [Staff Physician] - 2 Weeks Disposition: [facility] - Home Medications Comprehensive Discharge Medication List: Ambulatory Orders Fluoxetine HCl [Prozac -] 20 mg PO DAILY 05/03/15 Metoprolol Tartrate [Lopressor] 50 mg PO BID 05/03/15 Trazodone HCl [Desyrel -] 50 mg PO HS 05/03/15 Acetaminophen [Tylenol .Regular Strength -] 650 mg PO Q6H PRN #0 tablet Aspirin 81 mg PO DAILY 06/17/17 Docusate Sodium [Colace] 300 mg PO HS 06/17/17 Folic Acid 1 mg PO DAILY 06/17/17 Magnesium Hydroxide [Milk of Magnesia] 15 ml PO DAILY PRN 06/17/17 Oxycodone HCl/Acetaminophen [Oxycodone-Acetaminophen 5-325] 2 tab PO Q6H PRN Polyethylene Glycol 3350 [Miralax 119 gm Btl -] 17 gm PO DAILY 06/17/17 Simvastatin [Zocor -] 20 mg PO HS 06/17/17 Tizanidine HCl [Zanaflex] 0.5 tab PO BID 06/17/17 Enoxaparin [Lovenox -] 40 mg SQ DAILY disp.syrin 06/19/17 Lidocaine 5% Patch [Lidoderm -] 1 patch TP DAILY patch 06/19/17 Nystatin Cream [Mycostatin Cream -] 1 applic TP BID applic 06/19/17 This patient is new to me today: No Emergency Visit: Yes ED Registration Date: 06/18/17 Care time: The patient presented to the Emergency Department on the above date and was hospitalized for further evaluation of their emergent condition. Critical Care patient: No - Discharge Referral [facility]erred to [facility] Med P.C.: No
[2017-06-19 15:44] VITALS: BP 148/86; PULSE 76; TEMP 98.7
--- NOTE | 2017-06-19 19:16 | PN ---
Teaching Attending Note Name of Resident: Albaro Merritt ATTENDING PHYSICIAN STATEMENT I saw and evaluated the patient. I reviewed the resident's note and discussed the case with the resident. I agree with the resident's findings and plan as documented. SUBJECTIVE: No fever or chills. complains of pain in R hip OBJECTIVE: NAD, in position, more awake today and cooperative limited exam due to his position CV: RRR, no MRG Lungs: CTAB Abd: soft, Nt, ND , NL BS lying on R side , can't evaluate hip, no edema or erythema on legs . Assessment/Plan: 72 y/o unfortunate man with h/o hemorrhagic stroke, R sided weakness, HLP, GERD , aphasia, and recent R hip hair line Fx , managed conservatively who presented after a fall form a wheel chair in [place] . 1- Displaced R hip Fx: with significant pain -evaluated by Surgical team. no surgical procedure . - cont oxy and lidocaine patch - DVT Px after dc 2- HTN:lopressor 50 BID 3- Depression : cont prozac and trazodone dispo . back to [place]
== END 2017-06-19 17:04 | DRG 536 ==
LOC: JER 22:58 → UNDOADMOB 06-17 05:11 → JERBED 06-17 05:11 → J6S 06-18 01:04 → JERBED 06-18 01:04 → INTOOBSV 06-18 16:16 → OBSVTOIN 06-18 16:16
PROVIDERS: ADMIT Internal Medicine; ATTEND Internal Medicine
DX: S72.011A Unspecified intracapsular fracture of right femur, initial encounter for closed fracture (principal); R47.01 Aphasia; I69.351 Hemiplegia and hemiparesis following cerebral infarction affecting right dominant side; W05.0XXA Fall from non-moving wheelchair, initial encounter; Y93.89 Activity, other specified; Y92.128 Other place in nursing home as the place of occurrence of the external cause; Y99.8 Other external cause status; L89.512 Pressure ulcer of right ankle, stage 2; I10 Essential (primary) hypertension; I69.320 Aphasia following cerebral infarction; I69.392 Facial weakness following cerebral infarction; M10.9 Gout, unspecified; Z99.3 Dependence on wheelchair; K59.00 Constipation, unspecified; F32.9 Major depressive disorder, single episode, unspecified; B35.6 Tinea cruris
CPT/HCPCS: 36415; 73700-TC-RT; 80053; 85025; 85610; 86850; 86900; 86901; 93005; 93010; 99285-25; G0378